=== PATIENT | female | born 1970 | race Caucasian/White ===

== ENCOUNTER 2017-02-10 09:14 | Emergency (ER) | payer OTHER ==
[2017-02-10 09:25] VITALS: O2SAT 96
[2017-02-10] MEDS ORDERED: Tylenol #3 Tablet PO ONE (09:36)
[2017-02-10] MEDS ORDERED: Tylenol #3 Tablet ONE (09:40)
--- NOTE | 2017-02-10 10:18 | ERPHSYRPT ---
- History of Present Illness Time Seen by Provider: 02/10/17 09:25 Source: patient Exam Limitations: clinical condition Patient Subjective Stated Complaint: foot injury on golf cart Triage Nursing Assessment: lucinaetn foot was smashed my metal bar when golfcart rolled over yesterday evening, pedal pulses present, swelling noted in right foot and some scrapes Physician History: PATIENT STATES LAST NIGHT THE FRAME OF GOLF TURNED OVER AND SMASHED HER RIGHT FOOT. PATIENT COMPLAINS OF PAIN, SWELLING AND ABRASIONS. UNABLE TO BEAR WEIGHT ONTO FOOT Method of Injury: direct blow Occurred: yesterday Quality: constant Severity of Pain-Max: severe Severity of Pain-Current: severe Lower Extremities Pain: foot: right Modifying Factors: Improves With: movement Associated Symptoms: unable to bear weight Allergies/Adverse Reactions: aspirin Allergy (Mild, Verified 02/10/17 09:39) Hx Tetanus, Diphtheria Vaccination/Date Given: Yes Hx Influenza Vaccination/Date Given: No Hx Pneumococcal Vaccination/Date Given: No Immunizations Up to Date: Yes - Review of Systems Constitutional: No Symptoms Musculoskeletal: Injury, Joint Pain, Joint Swelling Neurological: No Symptoms Endocrine: No Symptoms - Past Medical History Pertinent Past Medical History: Yes Neurological History: Other ENT History: No Pertinent History Cardiac History: No Pertinent History Respiratory History: Asthma Endocrine Medical History: No Pertinent History Musculoskeletal History: No Pertinent History GI Medical History: Ulcer History: No Pertinent History Psycho-Social History: Anxiety, Depression Female Reproductive Disorders: No Pertinent History - Past Surgical History Past Surgical History: Yes Neuro Surgical History: No Pertinent History Cardiac: No Pertinent History Respiratory: No Pertinent History Gastrointestinal: No Pertinent History Genitourinary: No Pertinent History Musculoskeletal: Other Female Surgical History: No Pertinent History Other Surgical History: left pinky surgery 1984 - Social History Smoking Status: Current every day smoker How long have you smoked: 30 years Exposure to second hand smoke: Yes Drug Use: none Patient Lives Alone: No - Female History Hx Now: No - Nursing Vital Signs Nursing Vital Signs: Initial Vital Signs Temperature 98.5 F Temperature Source Oral Pulse Rate 77 Respiratory Rate 18 Blood Pressure [Right Arm] 119/69 Pain Intensity 3 - Physical Exam General Appearance: mild distress Ankle Exam: bilateral ankle: non-tender, normal inspection, normal range of motion Foot Exam: right foot: abrasions/lacerations, limited range of motion, soft tissue tenderness (PROXIMAL RIGHT FOOT 1ST TO 4TH METATARSALS WITH MINIMAL SWELLING, WITH SLIGHT ECCHYMOSIS, RIGHT PEDIS PULSE 2+) DTR - Lower Extremities Exam: knee (R): 2+, knee (L): 2+, ankle (R): 2+, ankle ( L): 2+ SpO2 Interpretation: normal SpO2: 96 Oxygen Delivery: Room Air - Radiology Exams Ankle X-ray Interpretation: Interpreted by me, Negative, No Fracture Foot X-ray Interpretation: Interpreted by me, Negative, No Fracture Ordered Tests: Active Orders 24 hr Category Date Time Status Crutches STAT Care 02/10/17 10:38 Active ANKLE (3 VIEWS) Stat Exams 02/10/17 09:35 Taken FOOT (MINIMUM 3 VIEWS) Stat Exams 02/10/17 09:35 Taken Medication Summary Discontinued Medications Generic Name Dose Route Start Last Admin Trade Name Freq PRN Reason Stop Dose Admin Acetaminophen/Codeine Phosphate 2 tab 02/10/17 09:36 02/10/17 09:41 Tylenol #3 Tablet PO 02/10/17 09:37 2 tab SENT HOME W/ PATIENT ONE Administration Acetaminophen/Codeine Phosphate Confirm 02/10/17 09:40 Tylenol #3 Tablet Administered 02/10/17 09:41 Dose 2 tab .ROUTE .STK-MED ONE - Progress Progress: pain not gone completely Progress Note: 02/10/17 10:59 PATIENT GIVEN TYLENOL #3, 2 TABLETS ORALLY, FITTED FOR CRUTCHES Counseled pt/family regarding: need for follow-up, rad results - Departure Time of Disposition: 11:10 Departure Disposition: Home Clinical Impression: CONTUSION/STRAIN RIGHT FOOT Condition: Stable Critical Care Time: No Additional Instructions: AMBULATE USING CRUTCHES NONWEIGHT BEARING RIGHT FOOT FOR 4-5 DAYS. MOTRIN 600MG EVERY 6 HOURS FOR MILD TO MODERATE PAIN, TYLENOL #3 EVERY 4 HOURS FOR SEVERE PAIN. OFF WORK UNTIL February. ELEVATE FOOT AND APPLY ICE OVER FOOT SWELLING EVERY 4 HOURS, 30 MINUTES FOR 48 HOURS. FOLLOWUP WITH YOUR FAMILY PHYSICIAN IN 1 WEEK. Prescriptions: Codeine Phosphate/APAP #3 [Tylenol #3 Tablet] 1 tab PO Q4H PRN PRN #20 tablet PRN Reason: Pain Ibuprofen 600 mg PO Q6HPRN PRN #20 tablet PRN Reason: Pain
[2017-02-10 11:11] VITALS: BP 128/68; PULSE 86
--- NOTE | 2017-02-10 12:35 | XRAY ---
Indication: Pain following injury. Comparison: None 3 nonweightbearing views of the left foot obtained. No bony, articular, or soft tissue abnormalities.
--- NOTE | 2017-02-10 12:37 | XRAY ---
Indication: Pain following injury. Comparison: None 3 views of the left ankle demonstrates tiny posterior talar accessory ossicle. No other bony, articular, or soft tissue abnormalities.
== END 2017-02-10 11:10 | disposition home or self-care (01) ==
LOC: ED 09:14
DX: S90.31XA Contusion of right foot, initial encounter (principal); S93.601A Unspecified sprain of right foot, initial encounter; W20.8XXA Other cause of strike by thrown, projected or falling object, initial encounter
CPT/HCPCS: 73610; 73630; 99283; A9270-GY

== ENCOUNTER 2018-09-29 08:56 | Emergency (ER) | payer OTHER ==
[2018-09-29] MEDS ORDERED: Sensorcaine 0.25% 10 ML ONE (09:04)
[2018-09-29 09:08] VITALS: BP 137/79; PULSE 89; O2SAT 97
[2018-09-29] MEDS: MARCAINE 0.25% PF/ EPI 1:200,000 IJ ONE (09:08)
--- NOTE | 2018-09-29 09:13 | ERPHSYRPT ---
- History of Present Illness Time Seen by Provider: 09/29/18 09:00 Source: patient, family Exam Limitations: no limitations Physician History: patient was cleaning ice off windshield this am and suffered a small laceration to the dorsum of her left (non-dominant) hand; mild bleeding ; local pain; no loss of function or sensation; immunization up to date; no other complaints or injuries Occurred: just prior to arrival, this morning Method of Injury: direct blow Quality: constant, aching Severity of Pain-Max: moderate Severity of Pain-Current: mild Extremities Pain Location: hand: left (dorsum left MCP) Modifying Factors: Improves With: immobilization (helps), movement (worsens) Associated Symptoms: none Allergies/Adverse Reactions: No Known Drug Allergies Allergy (Unverified 09/29/18 09:20) Home Medications: Atorvastatin Calcium [Lipitor] 10 mg PO DAILY 09/29/18 [History] Sertraline HCl 50 mg PO DAILY 09/29/18 [History] raNITIdine HCl [Ranitidine HCl] 150 mg PO DAILY 09/29/18 [History] Hx Tetanus, Diphtheria Vaccination/Date Given: Yes Hx Influenza Vaccination/Date Given: No Hx Pneumococcal Vaccination/Date Given: No - Review of Systems Constitutional: No Symptoms Eyes: No Symptoms Ears, Nose, & Throat: No Symptoms Respiratory: No Cough, No Dyspnea, No Wheezing Cardiac: No Chest Pain, No Palpitations, No Syncope Abdominal/Gastrointestinal: No Abdominal Pain, No Nausea, No Vomiting, No Diarrhea Genitourinary Symptoms: No Symptoms Musculoskeletal: Injury (dorsum left hand cut on mirror), No Back Pain, No Neck Pain, No Fall Skin: Other (2 cm dorsum left hand middle MCP) Neurological: No Focal Weakness, No Headache, No Parasthesia, No Sensory Changes Psychological: No Symptoms - Past Medical History Pertinent Past Medical History: Yes Neurological History: Other ENT History: No Pertinent History Cardiac History: No Pertinent History Respiratory History: Asthma Endocrine Medical History: No Pertinent History Musculoskeletal History: No Pertinent History GI Medical History: Ulcer History: No Pertinent History Psycho-Social History: Anxiety, Depression Female Reproductive Disorders: No Pertinent History - Past Surgical History Past Surgical History: Yes Neuro Surgical History: No Pertinent History Cardiac: No Pertinent History Respiratory: No Pertinent History Gastrointestinal: No Pertinent History Genitourinary: No Pertinent History Musculoskeletal: Other Female Surgical History: No Pertinent History Other Surgical History: left pinky surgery 1983 - Social History Smoking Status: Current every day smoker How long have you smoked: 30 years Exposure to second hand smoke: Yes Drug Use: none Patient Lives Alone: No - Nursing Vital Signs Nursing Vital Signs: Initial Vital Signs Temperature 97.5 F 09/29/18 09:00 Pulse Rate 86 09/29/18 09:00 Respiratory Rate 18 09/29/18 09:00 Blood Pressure 137/79 09/29/18 09:00 O2 Sat by Pulse Oximetry 96 09/29/18 09:00 Pain Scale Pain Intensity 6 - Physical Exam General Appearance: mild distress, alert, thin Eyes, Ears, Nose, Throat Exam: normal ENT inspection, pharynx normal, moist mucous membranes Neck Exam: normal inspection, non-tender, supple, full range of motion Cardiovascular/Respiratory Exam: chest non-tender, normal breath sounds, regular rate/rhythm, heart sounds normal, no JVD, no M/R/G Abdominal Exam: non-tender, soft, no organomegaly Back Exam: normal inspection, normal range of motion, No CVA tenderness Shoulder Exam: normal inspection, non-tender, no evidence of injury, normal ROM Elbow/Forearm Exam: normal inspection, non-tender, no evidence of injury, normal ROM Wrist Exam: normal inspection, non-tender, no evidence of injury, normal ROM Hand Exam: normal ROM, laceration (2 cm dorsum left hand; curvalinear; middle mcp; minimal bleeding; no FB; no loss of sensation distal; local tenderness only ; FROM and strength against resistance; no defecits), No normal inspection, No non-tender (tender over lac on dorsum left hand , middle mcp), No no evidence of injury, No bone tenderness, No deformity, No ecchymosis, No infection, No nail injury Neuro/Tendon Exam: normal sensation, normal motor functions, normal tendon functions, responds to pain, no evidence tendon injury Mental Status Exam: alert, oriented x 3, cooperative Skin Exam: normal color, warm, dry, laceration (dorsum left hand; middle MCP; 2 cm), No rash, No petechiae, No jaundice Procedures - Laceration/Wound Repair Left Dorsal Hand Wound Location: Left, hand (dorsum middle MCP 2.0 cm) Wound Length (cm): 2.0 (explored and tendon intact; no lac viewed) Wound's Depth, Shape: linear, into subcut Wound Explored: in bloodless field Irrigated: Yes Hibiclens Prep: Yes Anesthesia: marcaine 0.25 Volume Anesthetic (ccs): 3 Suture Size/Type: 4-0 Number of Sutures: 3 Layer Closure?: No Sterile Dressing Applied?: Yes Splint Applied?: No Sling Applied?: No - Course Nursing assessment & vital signs reviewed: Yes Ordered Tests: Active Orders 24 hr Category Date Time Status Wound Care STAT Care 09/29/18 09:06 Active Medication Summary Discontinued Medications Generic Name Dose Route Start Last Admin Trade Name Freq PRN Reason Stop Dose Admin Bacitracin Zinc 0.9 gm 09/29/18 09:06 Baciguent Packet TP 09/29/18 09:07 STAT ONE Bupivacaine HCl Confirm 09/29/18 09:04 Sensorcaine 0.25% 10 Ml Administered 09/29/18 09:05 Dose 10 ml .ROUTE .STK-MED ONE Bupivacaine HCl/Epinephrine Bitart 5 ml 09/29/18 09:06 09/29/18 09:08 Marcaine 0.25% Pf/ Epi 1:200,000 IJ 09/29/18 09:07 5 ml STAT ONE Administration - Progress Progress: re-examined (after local anesthesia) Progress Note: 09/29/18 09:18 local numbness; will scrub and explore and repair an needed; family at bedside 09/29/18 09:30 dressing applied; instructions given Counseled pt/family regarding: diagnosis, need for follow-up, smoking cessation - Departure Time of Disposition: 09:30 Departure Disposition: Home Clinical Impression: laceration dorsum left hand 2 cm mid mcp Condition: Stable Critical Care Time: No Referrals: OSCAR NGUYEN NP [Primary Care Provider] - Instructions: Laceration Repair With Stitches (DC) Additional Instructions: clean and dry; bacitracin; SR 10 days Follow-up with family doctor as directed. Call for appointment. Return if any problems. If you smoke please stop. Call or follow up with your family doctor for assistance if you need it to stop. Please wear your seatbelt when driving. Have a nice day. Thank you for allowing us to participate in your care today. :o) Dr Rigoberto Barrett
[2018-09-29] MEDS ORDERED: BACIGUENT PACKET ONE (09:26)
[2018-09-29] MEDS: BACIGUENT PACKET TP ONE (09:32)
== END 2018-09-29 09:49 | disposition home or self-care (01) ==
LOC: ED 08:56
DX: S61.412A Laceration without foreign body of left hand, initial encounter (principal); W26.9XXA Contact with unspecified sharp object(s), initial encounter
CPT/HCPCS: 12001; 96372; 99283; A9270-GY